=== PATIENT | male | born 1980 | race Caucasian/White ===

== ENCOUNTER 2025-03-27 08:56 | Emergency (ER) | payer OTHER, SELFPAY ==
--- NOTE | 2025-03-27 09:14 | EDNOTE_ITS ---
ED Eye Problem RME/HPI General Chief complaint: Eye Problems Stated complaint: Glass in his eyes Time Seen by Provider: 03/27/25 09:14 Arrival date/time: 03/27/25 08:56 RME / HPI RME / HPI Narrative: DR. JOHN MAIN ED EVALUATION: This section includes all my notes and documentations, including HPI, PE, and ED course.? Yovany John MD HPI: 45 year old male presents to the Emergency Department with complaint of bilateral eye irritation, left more than the right eye. 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 He flushed his eyes but states he still feels irritation and FB sensation. No other complaints. ROS: All negative except as documented in HPI. Physical Exam: General:? Alert and oriented.? No acute distress when remaining still.? Eyes:? Conjunctivae and lids clear. PERRL. EOMI. No FB noted bilaterally. Upper and lower eyelids everted for exam. Used tetracaine for local anesthesia. Used fluorescein dye. Under Wood's lamp, multiple punctate corneal abrasions noted bilaterally. ENT:? No nasal congestion.? ? Neck:? Supple. Lungs:? No respiratory distress.? Skin:? Warm and dry.? Neuro:? Alert and oriented X 3.? At this point, diagnoses include corneal abrasions. Recommended conservative treatment. Patient asked to examine his wrist due to pain and numbness for the past couple weeks. No tenderness to palpation. No limited range of motion. No NVT injury. Phalen's sign positive bilaterally. Tinel's sign positive bilaterally. Probable carpal tunnel syndrome. Based on my best medical judgment, made decision no further evaluation or treatment indicated at this time.? Patient understands and agrees to the discharge instructions customized and printed, see below. Discharge Instructions from Dr. John: ?You have scratches on the protective layer of your eyes (L > R). ?With rest and proper treatment, you will get better. ?Don?t rub your eyes, in general avoid touching your eyes with your hands. ?Use the eye drops as prescribed to help healing and avoid infection. ?Take Ibuprofen 800 mg every 8 hours today and tomorrow to decrease inflammation.? Then as needed.?? ?Try to rest your eye for 3 days as much as possible, less exposure to sun, sunglasses as needed, less TV/Computer, eye patch as needed, less reading, cold compress as needed, etc. ?If you are not completely better on 03/2325, see an eye doctor of your choice. You do not want to take chances with your vision and eyes. Local [employer] is adequate.? --Your wrist pain with numbness is most likely due to carpal tunnel syndrome. See attached handout. For the rest needed to heal, wear wrist splints for 4 full days then as needed. Elevate above the heart level for 3 days as much as possible. Placing your hands on your head is a good method. See a private doctor outside the ER to help you get more care not available here in the ER. Such as nerve conduction studies to confirm diagnosis and referral to see specialists. ?Seek immediate medical care with worsening, fever, or with any concerns. Yovany John MD Related Data Previous Rx's ?Medication ?Instructions ?Recorded ibuprofen 800 mg tablet 800 mg PO Q8H PRN pain #30 t abs 03/27/25 [id number] 3.5 1 drp ophthalmic (eye) Q6H 5 days 03/27/25 mg/mL-10,000 unit/mL-0.1% eye #5 mL drops (Maxitrol) Allergies Allergy/AdvReac Type Severity Reaction Status Date / Time No Known Allergies Allergy Verified 03/27/25 08:59 Course Quality Measures none Vital Signs Vital signs: Vital Signs Temperature 97.6 F 03/27/25 09:17 Pulse Rate 65 03/27/25 09:17 Respiratory Rate 18 03/27/25 09:17 Blood Pressure 149/90 H 03/27/25 09:17 Pulse Oximetry (%) 98 03/27/25 09:17 Oxygen Delivery Method Room Air 03/27/25 09:17 Eye MDM Narrative MDM Narrative:: I, Kirti Salgado, am scribing for and in the presence of Dr. John. Patient data External records reviewed:: None (no previous visits here) Clinical information provided by:: patient Social determinants that could affect healthcare access:: none Patient has the following chronic illnesses:: Denies any PMHx, surgeries, daily medications, or known allergies. How is presenting disease/condition affected by chronic disease/condition?: no chronic disease Evaluation data The following diagnostics were reviewed and interpreted by me:: other (specify) (none) Lab and/or radiology exams considered but not ordered:: none Interpretation Summary: No diagnostics ordered. Medications / Prescriptions Medications or Prescriptions considered but not ordered:: none Medication administrations:: none Consultations Consultation(s) initiated? (list below): No Diagnosis Eye Problem Differential Diagnosis: corneal abrasion, conjunctivitis, acute iritis, subconjunctival hemorrhage and ruptured globe Most likely diagnosis given after review of the tests above:: corneal abrasions Admission Indicated Admission indicated?: not indicated Explain why admission is indicated or not indicated:: With no serious condition, there was no indication for admission. Admission Request Was there a request for admission?: No Disposition Plan Disposition Plan: Discharge Discharge Attestation Discharge Attestation: The patient and all family members were given an opportunity to ask questions and understood the discharge instructions. Discharge instructions specifically effects, indications for sooner follow up or return to the emergency department, and the expected course of current diagnosis. Patient condition: Stable Discharge Plan Plan Patient Disposition: HOME (Self Care) Prescriptions/Referrals Prescriptions/Med Rec: New ibuprofen 800 mg tablet 800 mg PO Q8H PRN (Reason: pain) Qty: 30 0RF neomycin-polymyxin B-dexameth [Maxitrol] 3.5mg/mL-10,000 unit/mL-0.1 % drops,suspension 1 drp ophthalmic (eye) Q6H 5 Days Qty: 5 1RF Problem List Clinical Impression: Corneal abrasion Patient/Caregiver Discharge Instructions Discharge Activity: activity as tolerated Education Materials: ED Corneal Abrasion, ED Carpal Tunnel Syndrome Additional Instructions: Discharge Instructions from Dr. John: ?You have scratches on the protective layer of your eyes (L > R). ?With rest and proper treatment, you will get better. ?Don?t rub your eyes, in general avoid touching your eyes with your hands. ?Use the eye drops as prescribed to help healing and avoid infection. ?Take Ibuprofen 800 mg every 8 hours today and tomorrow to decrease inflammation.? Then as needed.?? ?Try to rest your eye for 3 days as much as possible, less exposure to sun, sunglasses as needed, less TV/Computer, eye patch as needed, less reading, cold compress as needed, etc. ?If you are not completely better on 03/2325, see an eye doctor of your choice. You do not want to take chances with your vision and eyes. Local [employer] is adequate.? --Your wrist pain with numbness is most likely due to carpal tunnel syndrome. See attached handout. For the rest needed to heal, wear wrist splints for 4 full days then as needed. Elevate above the heart level for 3 days as much as possible. Placing your hands on your head is a good method. See a private doctor outside the ER to help you get more care not available here in the ER. Such as nerve conduction studies to confirm diagnosis and referral to see specialists. ?Seek immediate medical care with worsening, fever, or with any concerns. Print Language: [place]e Stand Alone Forms: [employer] Award Info., Patient Portal Info Letter
[2025-03-27 09:17] VITALS: BP 149/90; PULSE 65; RESP 18; TEMP 36.4; O2SAT 98
[2025-03-27 09:18] VITALS: BMI 25.6
[2025-03-27 09:48] VITALS: BP 141/77; PULSE 72; RESP 18; TEMP 36.6; O2SAT 98
== END 2025-03-27 09:50 | disposition home or self-care (01) ==
PROVIDERS: Emergency Provider Emergency Medicine
DX: S05.02XA Injury of conjunctiva and corneal abrasion without foreign body, left eye, initial encounter (principal); S05.01XA Injury of conjunctiva and corneal abrasion without foreign body, right eye, initial encounter; X58.XXXA Exposure to other specified factors, initial encounter
CPT/HCPCS: 99281